=== PATIENT | male | born 1960 | race Caucasian/White ===

== ENCOUNTER 2018-05-04 16:16 | Emergency (ER) | payer OTHER ==
[~2018-05-04] VITALS: Ht 167.6 cm; Wt 112.0 kg
[2018-05-04 17:32] LABS: HEMATOCRIT. 45.2 % (42.0-52.0); HEMOGLOBIN. 15.9 g/dL (14.0-18.0); MEAN CORPUSCULAR HEMOGLOBIN 31.4 pg (28.0-32.0); MEAN CORPUSCULAR VOLUME 89.5 fL (80.0-94.0); MEAN PLATELET VOLUME 8.3 fl (7.4-10.4); PLATELET 224 x1000/uL (130-400); RED BLOOD CELL COUNT 5.05 mill/uL (4.7-6.1); RED CELL DISTRIBUTION WIDTH 12.9 % (11.6-14.6)
[2018-05-04 17:35] LABS: CHLORIDE 105 mEq/L (98-107)
[2018-05-04 17:51] LABS: PLATELET ESTIMATE NORMAL
[2018-05-04] MEDS ORDERED: SODIUM CHLORIDE 0.9% 1,000 ML IV ONE (18:32)
[2018-05-04 20:10] VITALS: BP 150/88
== END 2018-05-04 20:22 | disposition left against medical advice (07) ==
LOC: ER 17:18
DX: R55 Syncope and collapse (principal); I10 Essential (primary) hypertension; F17.200 Nicotine dependence, unspecified, uncomplicated; Z98.890 Other specified postprocedural states
CPT/HCPCS: 36415; 70450; 71045; 80053; 82962; 84484; 85025; 93005; 96360; 99285; J7030

== ENCOUNTER 2023-10-15 23:17 | Emergency (ER) | payer OTHER ==
[~2023-10-15] VITALS: Ht 182.9 cm; Wt 109.0 kg
[2023-10-15 23:30] VITALS: TEMP 98.1; O2SAT 98
[2023-10-16] MEDS ORDERED: IBUPROFEN 600MG TABLET PO ONE (00:45)
[2023-10-16] MEDS ORDERED: IBUP-2029 MT (00:49)
[2023-10-16 01:08] VITALS: BP 143/77; PULSE 80; RESP 18
== END 2023-10-16 01:14 | disposition home or self-care (01) ==
LOC: ER 23:17
DX: S49.91XA Unspecified injury of right shoulder and upper arm, initial encounter (principal); I10 Essential (primary) hypertension; Z98.890 Other specified postprocedural states; X58.XXXA Exposure to other specified factors, initial encounter; Y93.89 Activity, other specified; Y92.89 Other specified places as the place of occurrence of the external cause; Y99.8 Other external cause status
CPT/HCPCS: 73030; 99283; A4565